=== PATIENT | male | born 1980 | race Two or more races ===

== ENCOUNTER 2019-03-12 12:09 | Inpatient (IN) | payer OTHER ==
[~2019-03-12] VITALS: Ht 180.3 cm; Wt 105.7 kg
== END 2019-04-06 20:15 | disposition home or self-care (01) | DRG 331 ==
LOC: ADM 03-26 12:15 → EDSTATUS 03-26 12:15 → SURH 04-03 04:51 → O/R 04-03 04:51 → SURH 04-03 10:00
PROVIDERS: ADMIT Colon & Rectal Surgery
PROC: 0DJD8ZZ Inspection of Lower Intestinal Tract, Via Natural or Artificial Opening Endoscopic (ICD-10-PCS; 2019-04-03)
PROC: 0DTN4ZZ Resection of Sigmoid Colon, Percutaneous Endoscopic Approach (ICD-10-PCS; principal; 2019-04-03 10:00)
DX: K57.32 Diverticulitis of large intestine without perforation or abscess without bleeding (principal); K57.50 Diverticulosis of both small and large intestine without perforation or abscess without bleeding